=== PATIENT | male | born 1965 | race Caucasian/White ===

== ENCOUNTER 2024-02-10 13:18 | Emergency (ER) | payer MEDICARE, MEDICAID, SELFPAY ==
[2024-02-10 13:23] VITALS: BP 139/83; PULSE 65; TEMP 36.6; O2SAT 98; BMI 25.1
--- NOTE | 2024-02-10 13:34 | XR_ITS ---
[address] [address] Patient Name: PATRICIA SIEGEL MRN: [id number] date: 1965 Sex: M Assigned Patient Location: ER Current Patient Location: ER Accession/Order Number: [id number] Exam Date: 02/10/2024 13:42 Report Date: 02/10/2024 14:06 At the request of: LIANA CORCORAN Procedure: XR humerus RT PROCEDURE: XR shoulder RT min 2V, XR humerus RT COMPARISON: None. HISTORY: pain FINDINGS: BONES:No acute fracture or dislocation. The glenohumeral and acromioclavicular joints are intact. Single surgical anchor in the humeral head. SOFT TISSUES:Negative. No visible soft tissue swelling. EFFUSION:None visible. OTHER: Negative. XR/XR humerus RT IMPRESSION: No acute abnormality of the shoulder or humerus Electronically authenticated by: YAYA HOOD Date: 02/10/2024 14:06
--- NOTE | 2024-02-10 13:34 | XR_ITS ---
The [address] [address] Patient Name: PATRICIA SIEGEL MRN: [id number] date: 1965 Sex: M Assigned Patient Location: ER Current Patient Location: ER Accession/Order Number: [id number] Exam Date: 02/10/2024 13:42 Report Date: 02/10/2024 14:06 At the request of: LIANA CORCORAN Procedure: XR shoulder RT min 2V PROCEDURE: XR shoulder RT min 2V, XR humerus RT COMPARISON: None. HISTORY: pain FINDINGS: BONES:No acute fracture or dislocation. The glenohumeral and acromioclavicular joints are intact. Single surgical anchor in the humeral head. SOFT TISSUES:Negative. No visible soft tissue swelling. EFFUSION:None visible. OTHER: Negative. XR/XR shoulder RT min 2V IMPRESSION: No acute abnormality of the shoulder or humerus Electronically authenticated by: YAYA HOOD Date: 02/10/2024 14:06
--- NOTE | 2024-02-10 13:36 | ED_ITS ---
HPI HPI - Extremity Injury (Upper) General Chief Complaint: Extremity Injury, Upper Stated Complaint: UPPER EXTREMITY PAIN Time Seen by Provider: 02/10/24 13:28 Source: patient Mode of arrival: walk-in Limitations: no limitations History of Present Illness HPI narrative: Patient is a 58-year-old male who presents to the emergency department For the evaluation of right arm pain for the last month. He states he felt pain in his arm with lifting about 1 month ago. He saw his PCP this week who prescribed diclofenac for him. He states he was told his neck step would be an MRI. No imaging was ordered. He denies any falls or direct injury to the shoulder or arm. He has no numbness or tingling. He reports pain over the right humerus into the right glenohumeral joint. He states he was diagnosed with a possible rotator cuff tear, he has no scapular pain. Pain is worse with range of motion of the arm. He has had previous surgery for rotator cuff injury in the past with Dr. Nichols. He states today he was lifting a cinderblock When he felt pain increase in a tearing sensation to the arm. No medications taken prior to arrival Related Data Home Medications ?Medication ?Instructions ?Recorded ?Confirmed atorvastatin 40 mg tablet 40 mg PO DAILY 02/10/24 02/10/24 clopidogrel 75 mg tablet 75 mg PO DAILY 02/10/24 02/10/24 gabapentin 100 mg capsule 200 mg PO Q8H 02/10/24 02/10/24 teriflunomide 14 mg tablet 14 mg PO DAILY 02/10/24 02/10/24 tolterodine 4 mg capsule,extended 4 mg PO DAILY 02/10/24 02/10/24 release 24 hr Previous Rx's ?Medication ?Instructions ?Recorded methocarbamol 750 mg tablet 750 mg PO TID PRN pain #20 tabs 02/10/24 methylprednisolone 4 mg tablets in See Rx Instructions .Route 02/10/24 a dose pack (Medrol (James)) .COMPLEX #21 ea Allergies Allergy/AdvReac Type Severity Reaction Status Date / Time Penicillins Allergy Severe Verified 02/10/24 13:28 Opioid HPI Opioid Management Most Recent Pain and Opioid Data: Last ED Pain Assessment 02/10/24 13:45 Review of Systems ROS Constitutional Denies: fever or chills Ears, nose, mouth, and throat Denies: throat pain or nasal congestion Cardiovascular Denies: chest pain Respiratory Denies: shortness of breath or cough Gastrointestinal Denies: nausea or vomiting Musculoskeletal Reports: extremity pain, joint pain and limited range of motion; Denies: back pain or neck pain Integumentary/Breast Denies: rash Neurological Denies: headache Endocrine Denies: excessive urination Hematologic/Lymphatic Denies: easy bruising or easy bleeding Exam Narrative Exam Narrative: Gen.: Awake, alert, in no distress Head: Normocephalic, atraumatic ENT: Moist mucous membranes Respiratory: No respiratory distress Extremities: Pain to the right arm and shoulder with abduction. No tenderness over the right scapula. No bony tenderness of the posterior cervical spine. Normal manager community development strength in the right hand with normal biceps tendon strength of flexion and extension at the right elbow. No bulging or deformity noted of the right bicep. No obvious deformity. Psych: Normal mood and affect Neuro: No focal neuro deficit Skin: Warm, dry, intact Constitutional Vital Signs, click to edit/add: Last Vital Signs Temp 97.8 F 02/10/24 13:23 Pulse 65 02/10/24 13:23 Resp 18 02/10/24 13:23 BP 139/83 02/10/24 13:23 Pulse Ox 98 02/10/24 13:23 O2 Del Method Room Air 02/10/24 13:23 Course Vital Signs Vital signs: Vital Signs Temperature 97.8 F 02/10/24 13:23 Pulse Rate 65 02/10/24 13:23 Respiratory Rate 18 02/10/24 13:23 Blood Pressure 139/83 02/10/24 13:23 Pulse Oximetry 98 02/10/24 13:23 Oxygen Delivery Method Room Air 02/10/24 13:23 Temperature 97.8 F 02/10/24 13:23 Pulse Rate 65 02/10/24 13:23 Respiratory Rate 18 02/10/24 13:23 Blood Pressure 139/83 02/10/24 13:23 Pulse Oximetry 98 02/10/24 13:23 Oxygen Delivery Method Room Air 02/10/24 13:23 MDM - Extremity Injury (Upper) MDM Narrative Medical decision making narrative: X-rays reviewed by the radiologist with no evidence of acute process. Patient placed in a shoulder sling and counseled to only use this when he is up and moving around, remove the sling and do not wear it after 2 to 3 days to prevent frozen shoulder. Rest, ice, gentle stretching. Follow-up with orthopedics and return to the ER if symptoms change or worsen. Patient is neurovascularly intact at discharge. Medrol Dosepak and muscle relaxants given for home. Medical Records Attestation: I reviewed the patient's medical records. Imaging Data xr shoulder: Attestation: I have reviewed the pertinent imaging results. Radiologist's impression: ITS Impressions Humerus X-Ray 02/10/24 13:34 IMPRESSION: No acute abnormality of the shoulder or humerus Electronically authenticated by: YAYA HOOD Date: 02/10/2024 14:06 Shoulder X-Ray 02/10/24 13:34 IMPRESSION: No acute abnormality of the shoulder or humerus Electronically authenticated by: YAYA HOOD Date: 02/10/2024 14:06 Discharge Plan Discharge Stand Alone Forms: Portal Instructions Chief Complaint: Extremity Injury, Upper Clinical Impression: Acute pain of right shoulder Patient Disposition: Home, Self-Care Time of Disposition Decision: 14:09 Condition: Good Prescriptions / Home Meds: New methocarbamol 750 mg tablet 750 mg PO TID PRN (Reason: pain) Qty: 20 0RF methylprednisolone [Medrol (James)] 4 mg tablets,dose pack See Rx Instructions .ROUTE .COMPLEX Qty: 21 0RF Rx Instructions: Taper as directed No Action atorvastatin 40 mg tablet 40 mg PO DAILY gabapentin 100 mg capsule 200 mg PO Q8H clopidogrel 75 mg tablet 75 mg PO DAILY teriflunomide 14 mg tablet 14 mg PO DAILY tolterodine 4 mg capsule,extended release 24hr 4 mg PO DAILY Print Language: American Instructions: Shoulder Pain (ED), Arm Pain (ED) Referrals: Jesús Santacruz MD [Primary Care Provider] - 1 week Paul Nichols MD [Physician] - 1 week
[2024-02-10] MEDS: METHYLPREDNISOLONE SOD SUCC PF 125 MG/2 ML VIAL IM (13:50)
[2024-02-10 14:20] VITALS: BP 135/78; PULSE 73; O2SAT 97
== END 2024-02-10 14:22 | disposition home or self-care (01) ==
PROVIDERS: Emergency Provider Student in an Organized Health Care Education/Training Program; PCP Family Medicine
DX: M25.511 Pain in right shoulder (principal); Z79.899 Other long term (current) drug therapy
CPT/HCPCS: 73030; 73060; 96372; 99284; J2919

== ENCOUNTER 2024-02-11 11:40 | Outpatient (OUT) | payer MEDICARE, MEDICAID, SELFPAY ==
--- NOTE | 2024-02-11 11:47 | XR_ITS ---
The [address] [address] Patient Name: PATRICIA SIEGEL MRN: [id number] date: 1965 Sex: M Assigned Patient Location: [facility] Current Patient Location: .MAIN Accession/Order Number: [id number] Exam Date: 02/11/2024 11:52 Report Date: 02/11/2024 15:40 At the request of: ASHLEY ARGUELLES Procedure: XR cervical spine 2-3V EXAMINATION: XR cervical spine 2-3V HISTORY: Pain In Right Shoulder M25.511 COMPARISON: No relevant comparison available. FINDINGS: BONES: Normal alignment with no acute fracture or spondylolisthesis. Mild degenerative spondylosis and facet osteoarthropathy DISC SPACES: Normal. No significant disc height narrowing, subluxation, or endplate abnormality. PARASPINOUS: Negative. No paraspinous abnormality is seen. OTHER: Negative. XR/XR cervical spine 2-3V IMPRESSION: Mild degenerative changes Electronically authenticated by: YAYA HOOD Date: 02/11/2024 15:40
== END 2024-02-11 11:41 | disposition home or self-care (01) ==
LOC: RAD 11:43
PROVIDERS: PCP Family Medicine; Visit Provider Family Medicine
DX: M25.511 Pain in right shoulder (principal)
CPT/HCPCS: 72040

== ENCOUNTER 2024-02-12 08:45 | Outpatient (RCR) | payer MEDICARE, MEDICAID, SELFPAY | END 2024-03-11 10:57 | disposition home or self-care (01) | LOC: PT 08:45 | PROVIDERS: PCP Family Medicine; Visit Provider Family Medicine | DX: M25.511 Pain in right shoulder (principal) | CPT/HCPCS: 97110; 97161 ==